=== PATIENT | female | born 1985 | race Two or more races ===

== ENCOUNTER 2024-01-16 22:17 | Emergency (ER) | payer OTHER ==
[~2024-01-16] VITALS: Ht 165.1 cm; Wt 50.0 kg
[2024-01-17] MEDS: DexAMETHasone SOD PHOS 10MG/1ML VIAL INJ IM ONE (03:22)
[2024-01-17] MEDS: KETOROLAC TROMETH 60MG/2ML VIAL IM ONE (03:22)
[2024-01-17] MEDS: ONDANSETRON ODT 4 MG TAB PO ONE (03:23)
[2024-01-17 03:28] VITALS: BP 95/60; PULSE 59; RESP 18; TEMP 97.8; O2SAT 99
== END 2024-01-17 03:41 | disposition home or self-care (01) ==
LOC: ER 22:17 → EDBD 22:17 → ER 01-17 03:41
DX: G43.909 Migraine, unspecified, not intractable, without status migrainosus (principal)
CPT/HCPCS: 96372; 99284; J1100; J1885